=== PATIENT | female | born 1975 | race African-American/Black ===

== ENCOUNTER 2022-03-28 10:24 | Outpatient (CLI) | payer BC, SELFPAY ==
--- NOTE | ~2022-03-28 | US_ITS ---
Pelvic ultrasound. Clinical History: Pelvic swelling or mass Technique: Realtime transabdominal and transvaginal scanning of the pelvis was performed. Color flow Doppler and Doppler spectral analysis were performed. Findings: The uterus is retroverted. The endometrial stripe has a thickness of 8 mm. No focal mass i s identified. The right ovary measures 2.9 x 2.4 x 1.9 cm. No significant right ovarian or adnexal mass is seen. The left ovary measures 2.5 x 1.1 x 1.1 cm. No significant left ovarian or adnexal mass is seen. Vascular flow present in both ovaries on Doppler spectral analysis. There is no evidence of free fluid in the cul de sac. Impression: No significant abnormality seen. Reviewed, dictated and finalized at [facility]. CLINICAL PROGRAMMER Impression: No significant abnormality seen.
== END 2022-03-28 10:25 ==
LOC: MICIMG 10:26
PROVIDERS: PCP Family Medicine; Visit Provider Advanced Practice Midwife
DX: R19.00 Intra-abdominal and pelvic swelling, mass and lump, unspecified site (principal)
CPT/HCPCS: 76830

== ENCOUNTER → 2022-04-01 10:50 | Outpatient (CLI) | payer BC, SELFPAY ==
--- NOTE | ~2022-04-01 | MM_ITS ---
EXAMINATION: MM screening em[facility] BI w [facility] HISTORY: Screening mammogram TECHNIQUE: Craniocaudal and mediolateral oblique 3-D tomosynthesis images were obtained and synthetic 2-D images were generated. CAD analysis was submitted and interpreted. COMPARISON: No prior mammogram is available for comparison at this institution. BREAST PARENCHYMAL COMPOSITION: The breasts are heterogeneously dense, which may obscure small masses . FINDINGS: There is no evidence of suspicious mass, calcification, or architectural distortion to sugg est malignancy in either breast. There has been no suspicious interval change. IMPRESSION: 1. No mammographic evidence of malignancy. 2. Recommend routine screening mammography in one year. BI-RADS Category 1: Negative Reviewed, dictated and finalized at location A. REPAIRER
== END ==
PROVIDERS: PCP Family Medicine; Visit Provider Obstetrics & Gynecology Gynecology
DX: Z12.31 Encounter for screening mammogram for malignant neoplasm of breast (principal)
CPT/HCPCS: 77063; 77067

== ENCOUNTER 2023-05-20 09:52 | Outpatient (CLI) | payer OTHER, SELFPAY ==
--- NOTE | ~2023-05-20 | MM_ITS ---
EXAMINATION: MM screening mehdi BI w [facility] HISTORY: Screening mammogram TECHNIQUE: Craniocaudal and mediolateral oblique 3-D tomosynthesis images were obtained and synthetic 2-D images were generated. CAD analysis was submitted and interpreted. COMPARISON: 04/01/2022 BREAST PARENCHYMAL COMPOSITION:Dense: The breasts are heterogeneously dense, which may obscure small masses. FINDINGS: No suspicious mass, calcification, or architectural distortion are identified in either sushma ast to suggest malignancy. There has been no suspicious interval change. IMPRESSION: No mammographic evidence of malignancy. Recommend routine screening mammography in one year. BI-RADS Category 1: Negative Reviewed, dictated and finalized at location .
== END 2023-05-20 09:53 | disposition home or self-care (01) ==
LOC: ANHIMG 09:58
PROVIDERS: PCP Family Medicine; Visit Provider Obstetrics & Gynecology Gynecology
DX: Z12.31 Encounter for screening mammogram for malignant neoplasm of breast (principal)
CPT/HCPCS: 77063; 77067

== ENCOUNTER 2023-07-07 14:52 | Outpatient (CLI) | payer OTHER, SELFPAY ==
--- NOTE | ~2023-07-07 | US_ITS ---
EXAMINATION: US pelvic complete w TV DATE: 07/07/2023 15:51 INDICATION: Uterine hypertrophy Comparison:Ultrasound dated 03/28/2022 TECHNIQUE: Multiple transabdominal and endovaginal sonographic images of the pelvis performed. FINDINGS: The uterus measures 10 x 6.1 x 6.7 cm. The endometrial complex measures 9 mm. The right ovary measures 2.5 x 1.8 x 2.4 cm and the left ovary measures 3.7 x 1.6 x 1.7 cm. There ar e small follicles in each ovary. There is a left ovarian cyst measuring 1.9 cm. Normal doppler signal in both ovaries. There is no free fluid in the pelvis. There are no abnormal masses seen on either side. IMPRESSION: 1. Mildly enlarged uterus. 2: Left ovarian cyst measuring 1.9 cm. Reviewed, dictated and finalized at location B.
== END 2023-07-07 14:53 | disposition home or self-care (01) ==
LOC: ANHIMG 14:54
PROVIDERS: PCP Family Medicine; Visit Provider Nurse Practitioner
DX: N85.2 Hypertrophy of uterus (principal); N83.202 Unspecified ovarian cyst, left side
CPT/HCPCS: 76830; 76856

== ENCOUNTER 2024-07-11 11:59 | Outpatient (CLI) | payer OTHER, SELFPAY ==
[2024-07-11 12:23] LABS: Hematocrit 37.1 % (37.0-47.0); Hemoglobin 11.2 g/dL (12.0-15.0)
== END 2024-07-11 12:00 | disposition home or self-care (01) ==
PROVIDERS: Anesthesiology; Visit Provider Obstetrics & Gynecology Gynecology
DX: D64.9 Anemia, unspecified (principal)
CPT/HCPCS: 36415; 85014; 85018

== ENCOUNTER 2024-07-18 00:50 | Day surgery (SDC) | payer OTHER, SELFPAY ==
[2024-07-06 10:18] VITALS: BMI 23.8
--- NOTE | 2024-07-06 10:28 | PC.NURSE ---
Report to the Outpatient Waiting Room, entrance under the green pavilion located off [facility], at time _0845_ on date _[id number]_. Planned Procedure Time: _1045_.? Time changes happen often and if your time is changed the preop area will call you the afternoon before. - You and your visitor will be asked to self-screen and do not enter if you have any COVID symptoms. Please call surgeon if you need to reschedule. - A mask is optional within the hospital at this time. Patients may have clear liquids (water, carbonated beverages, clear teas, apple juice) until 3 hours prior to surgery with a maximum of 20 ounces. - No food from midnight until time of surgery and no smoking, or chewing tobacco (or any form of nicotine). No chewing gum, candy or mints. Take only the following medications with a SIP of water on the morning of surgery: __None___ DO NOT STOP ANY OF YOUR OTHER PRESCRIPTION MEDICATIONS PRIOR TO SURGERY EXCEPT THE FOLLOWING Hold all vitamins and supplements for 3 days per anesthesiologist. Medications to discontinue per physician Date to take last ghgx__[id number]____ Please no make-up, nail danish, hairspray, perfume, deodorant, or body powder the day of surgery.? No jewelry (including any body piercings) or valuables the day of surgery, leave them at home.? Please take a shower or bath the night before, or the morning of, surgery with an antibacterial soap.? Wear comfortable, loose fitting clothing. - Jewelry must be removed prior to entering the operating room.? Rings and piercings that are not removed may be cut off. - The hospital will not accept responsibility for valuables.? - Please leave all valuables, including medications, at home the day of surgery. If you are going home after surgery, a licensed mechanic driver must drive you home.? - NO public transportation without another adult if you receive anesthesia. - We recommend that an adult stay with you for 24 hours following discharge. - We also recommend that you do not drive, make important decision, drink alcoholic beverages, or take any drugs that were not prescribed by your health care provider for at least 24 hours after your discharge time. Follow any additional instructions given to you from your surgeon. Telephone instructions given to __Donna__and asked if any additional questions and then verbalized understanding. Patient advised to call surgeon office or pre surgery nurse liaison [phone] if any additional questions.
--- NOTE | 2024-07-18 07:37 | WPDHPUPDATE1 ---
History and Physical Update Update Date/Time: 07/18/24 07:37 History and Physical has been reviewed, including an updated exam of the patient. There are NO changes in the patient's condition. Risks, benefits, and alternatives have been discussed and questions answered. Patient agrees to proceed with procedure.
--- NOTE | 2024-07-18 07:37 | PM.HPGS ---
History of Present Illness History of Present Illness Consent: Risks, benefits, and alternatives have been discussed and questions answered. Patient agrees to proceed with procedure. Chief complaint: Menorrhagia Narrative: Sri Albrecht is a 48 year old female with normal cycles once a month but continued intermenstrual bleeding occurring every 1 to 2 days she has spotting. Pelvic ultrasound is normal. It was recommended to undergo D&C hysteroscopy for further evaluation. Risks of infection, bleeding, perforation, and possible pathology are reviewed. Patient voices understanding and agrees to proceed. Review of Systems Review of Systems: not repeated day of surgery; patient states no changes in status [facility] Past Medical History Medical History (Updated 07/18/24 @ 07:41 by Simin Herrmann MD) History of spontaneous (normal spontaneous vaginal delivery) Depression History of TIA (transient ischemic attack) Surgical History Surgical History (Updated 07/18/24 @ 07:40 by Simin Herrmann MD) History of History of surgical closure of patent foramen ovale (PFO) 2018 History of back surgery Family History Family History (System 03/18/22 @ 12:30 by Shin Guerrero) Mother Hypertension Father Family history of lymphoma Social History Social History (System 03/18/22 @ 12:30 by Shin Guerrero) Smoking status: Never smoker Alcohol intake: never Living arrangements: with family Spiritual care concerns: No Meds Home Medications and Allergies Home Medications ?Medication ?Instructions ?Recorded ?Confirmed ?Type amitriptyline 25 mg tablet 25 mg PO HS 07/06/24 07/06/24 History cyanocobalamin (vitamin B-12) 1,000 mcg PO DAILY 07/06/24 07/06/24 History 1,000 mcg tablet,extended release (Vitamin B-12 ER) ergocalciferol (vitamin D2) 1,250 50,000 unit PO WEEKLY 07/06/24 07/06/24 History mcg (50,000 unit) capsule (Vitamin D2) ferrous sulfate 325 mg (65 mg 325 mg PO DAILY 07/06/24 07/06/24 History iron) tablet (FeroSul) Allergies Allergy/AdvReac Type Severity Reaction Status Date / Time No Known Allergies Allergy Verified 07/06/24 10:15 Exam Const: General: healthy appearing and alert Orientation/consciousness: patient oriented x3 Resp: Effort & Inspection: normal respiratory effort : External Female Exam: normal external appearance Speculum Exam - Vagina: normal appearance of the vagina and normal vaginal discharge Speculum Exam - Cervix: normal appearance of the cervix Bimanual exam- vagina & uterus: uterine size normal and consistency normal Bimanual Exam- Adnexa, other: normal adnexae and No adnexal tenderness Neuro: General: patient oriented x3 Assessment and Plan Assessment and plan (1) Intermenstrual bleeding: Code(s): N92.3 - Ovulation bleeding Status: Acute Assessment and Plan: Plan to proceed with D&C hysteroscopy
[2024-07-18 09:05] VITALS: BP 141/86; PULSE 92; RESP 16; TEMP 36.8; O2SAT 100; BMI 24.5
[2024-07-18] MEDS: ACETAMINOPHEN 500 MG TABLET 1000 MG PO (09:44)
[2024-07-18] MEDS: LACTATED RINGERS 1,000 ML 30 ML IV CONT (09:50)
[2024-07-18 09:51] LABS: BEDSIDEPREGUCG Negative (Negative)
[2024-07-18] MEDS: KETOROLAC 15 MG/ML VIAL (*BKC) IV PUSH (11:14)
[2024-07-18 11:20] VITALS: BP 106/68; PULSE 82
--- NOTE | 2024-07-18 11:25 | W.PM.PROC2 ---
Procedure Note - Detailed Date of Procedure 07/18/24 Pre-op Diagnosis Menorrhagia Post-op Diagnosis Same Procedure Performed D&C hysteroscopy Surgeon Simin Herrmann MD Anesthesia MAC Findings Uterus sounds to 9cm and appears grossly normal Description of Procedure The patient is taken to operating room and placed under anesthesia in the dorsal lithotomy position. She was prepped and draped usual sterile fashion. [place] speculum was placed in the vagina and the cervix is grasped on the anterior lip with a tenaculum. Uterus sounded to 9cm. Due to the ultrasound showing fibroids, the cervix was serially dilated to a 6 Hegar. The large diagnostic hysteroscope was placed. No abnormalities are noted within the endometrium. The hysteroscope was removed. The sharp curette was used to curette the endometrium until a good uterine cry was noted in all areas. All instruments are removed. Sponge, needle, and instrument counts are correct per the OR staff. The patient was taken to the recovery in stable condition. Estimated Blood Loss 5 Drains No Packing No Pathology Yes (Endometrial curettings) Complications No immediate complications Condition Stable Disposition PACU
[2024-07-18 11:50] VITALS: BP 111/86; PULSE 101; RESP 16
[2024-07-18 12:20] VITALS: BP 116/80; PULSE 84; RESP 16
== END 2024-07-18 12:40 | disposition home or self-care (01) ==
PROVIDERS: Visit Provider Obstetrics & Gynecology Gynecology
PROC: 0U5B8ZZ Destruction of Endometrium, Via Natural or Artificial Opening Endoscopic (ICD-10-PCS; CPT 58563; principal; 2024-07-18 10:45)
DX: N92.0 Excessive and frequent menstruation with regular cycle (principal)
CPT/HCPCS: 58558; 88305; A9270; J1885; J2003; J2250; J2704; J3010; J7120

== ENCOUNTER 2024-12-24 11:18 | Day surgery (SDC) | payer OTHER, SELFPAY ==
[2024-12-14 08:35] VITALS: BMI 25.0
[2024-12-24 11:59] VITALS: BP 135/92; PULSE 83; RESP 16; TEMP 37.4; O2SAT 100
--- NOTE | 2024-12-24 11:59 | WPDANESEPPF ---
Anes - Initial Pre Proc Eval Procedure: Operation Date: 12/24/24 13:00 Proposed Procedures p Screening Colonoscopy - Anatoly Parmar MD Date/Time: 12/24/24 11:59 Surgeon: Anatoly Pamrar MD Pre Op Diagnosis: Screening Patient Data Age: 49 Gender: F Height: 1.65 m Weight: 74.7 kg Allergies Allergy/AdvReac Type Severity Reaction Status Date / Time No Known Allergies Allergy Verified 12/24/24 11:53 Home Medications ?Medication ?Instructions ?Recorded ?Confirmed ?Type amitriptyline 25 mg tablet 25 mg PO HS 07/06/24 12/24/24 History cyanocobalamin (vitamin B-12) 1,000 mcg PO DAILY 07/06/24 12/24/24 History 1,000 mcg tablet,extended release (Vitamin B-12 ER) ferrous sulfate 325 mg (65 mg 325 mg PO DAILY 07/06/24 12/24/24 History iron) tablet (FeroSul) medroxyprogesterone 150 mg/mL 150 mg IM DIRECTED 12/14/24 12/24/24 History intramuscular syringe Patient hx anesthesia problems: none Family hx anesthesia problems: none Prior surgeries: PFO closure Results Review: All pre-operative results and documents have been reviewed as part of the pre-operative evaluation. [facility] Past Medical History Medical History History of spontaneous (normal spontaneous vaginal delivery) Depression History of TIA (transient ischemic attack) Surgical History Surgical History History of History of surgical closure of patent foramen ovale (PFO) 2018 History of back surgery Family History Family History Mother Hypertension Father Family history of lymphoma Social History Social History Smoking status: Never smoker Alcohol intake: never Substance use type: does not use Living arrangements: with family Spiritual care concerns: No Anes - Eval Final PreProcedure Day of Procedure 12/24/24 11:59 Heart: regular rate and rhythm Lungs: clear to auscultation Airway: Mallampati scale class 1 Neurological: alert and oriented Last oral intake: >/= 8 hours and 6 hours ASA classification: II Emergent: no Anesthetic plan: proceed Anesthesia type and monitoring: monitored anesthesia care Results Review: All pre-operative results and documents have been reviewed as part of the pre-operative evaluation. Informed Consent: The patient's anesthetic plan and its attendant risks and benefits were discussed with the patient/family/POA. Questions were solicited and answers provided to the satisfaction of the patient/family/POA.
[2024-12-24] MEDS: LACTATED RINGERS 1,000 ML 150 ML IV CONT (12:05)
--- NOTE | 2024-12-24 12:48 | PM.IMHP ---
H&P: HPI History of Present Illness Date/Time: 12/24/24 12:48 Chief Complaint: Screening colonoscopy Narrative: This is the patient's first colonoscopy. There are no GI symptoms and there is no family history of colorectal cancer. Review of Systems Review of Systems: All systems reviewed & are unremarkable except as noted in HPI and below PMFSH Past Medical History Medical History History of spontaneous (normal spontaneous vaginal delivery) Depression History of TIA (transient ischemic attack) Surgical History Surgical History History of History of surgical closure of patent foramen ovale (PFO) 2018 History of back surgery Family History Family History Mother Hypertension Father Family history of lymphoma Social History Social History Smoking status: Never smoker Alcohol intake: never Substance use type: does not use Living arrangements: with family Spiritual care concerns: No Meds Home Medications and Allergies Home Medications ?Medication ?Instructions ?Recorded ?Confirmed ?Type amitriptyline 25 mg tablet 25 mg PO HS 07/06/24 12/24/24 History cyanocobalamin (vitamin B-12) 1,000 mcg PO DAILY 07/06/24 12/24/24 History 1,000 mcg tablet,extended release (Vitamin B-12 ER) ferrous sulfate 325 mg (65 mg 325 mg PO DAILY 07/06/24 12/24/24 History iron) tablet (FeroSul) medroxyprogesterone 150 mg/mL 150 mg IM DIRECTED 12/14/24 12/24/24 History intramuscular syringe Allergies Allergy/AdvReac Type Severity Reaction Status Date / Time No Known Allergies Allergy Verified 12/24/24 11:53 Vital Signs Vital Signs - 24 hr 12/24/24 11:59 Temperature 99.4 F Pulse Rate 83 Respiratory Rate 16 Blood Pressure 135/92 H Pulse Oximetry 100 Oxygen Delivery Room Air Exam Const: General: cooperative and healthy appearing Resp: Effort & Inspection: normal respiratory effort and able to speak in complete sentences Auscultation: clear to auscultation bilaterally Cardio: Rate: regular rate Rhythm: regular rhythm GI: Inspection: normal to inspection GI Palp: No No hepatosplenomegaly present Auscultation: normal bowel sounds Rectal Exam: deferred Skin: General skin exam: normal color Psych: Appearance: grossly normal Mental Status: mental status grossly normal Assessment and Plan Assessment and plan (1) Encounter for screening colonoscopy: Code(s): Z12.11 - Encounter for screening for malignant neoplasm of colon Status: Acute Assessment and Plan: The patient is deemed a good candidate for the procedure. Consent signed. Will proceed.
[2024-12-24 13:15] VITALS: BP 129/83; PULSE 88; RESP 16; O2SAT 100
[2024-12-24 13:25] VITALS: BP 130/98; PULSE 76; RESP 16; O2SAT 100
[2024-12-24 13:35] VITALS: BP 118/97; PULSE 78; RESP 16; O2SAT 100
== END 2024-12-24 13:53 | disposition home or self-care (01) ==
PROVIDERS: PCP Midwife; Referring Provider Midwife; Visit Provider Internal Medicine Gastroenterology
PROC: 0DJD8ZZ Inspection of Lower Intestinal Tract, Via Natural or Artificial Opening Endoscopic (ICD-10-PCS; CPT 45378; principal; 2024-12-24 13:00)
DX: Z12.11 Encounter for screening for malignant neoplasm of colon (principal)
CPT/HCPCS: 45378